=== PATIENT | male | born 1995 | race African-American/Black ===

== ENCOUNTER 2024-01-22 06:47 | Emergency (ER) | payer MEDICAID ==
[~2024-01-22] VITALS: Ht 182.9 cm; Wt 88.5 kg
[2024-01-22 07:25] VITALS: BP_SYST 128; PULSE 75; RESP 18; TEMP 97.9; O2SAT 100
[2024-01-22] MEDS ORDERED: TRAM50TA2 PO (07:28)
[2024-01-22] MEDS ORDERED: AMOX500C2 PO (07:28)
[2024-01-22 07:48] VITALS: BP_SYST 128; PULSE 75; RESP 18; TEMP 97.9; O2SAT 100
== END 2024-01-22 07:48 | disposition home or self-care (01) ==
LOC: SED 06:47
DX: K02.9 Dental caries, unspecified (principal); E11.9 Type 2 diabetes mellitus without complications; I10 Essential (primary) hypertension; Z79.899 Other long term (current) drug therapy
CPT/HCPCS: 99283